=== PATIENT | male | born 2000 | race Asian ===

== ENCOUNTER 2019-01-02 14:08 | Emergency (ER) | payer OTHER, SELFPAY ==
[2019-01-02 14:16] VITALS: BP 119/67; PULSE 78; RESP 14; TEMP 36.7; O2SAT 97; BMI 25.0
--- NOTE | 2019-01-02 14:45 | ED.ABDPAIN ---
HPI - Abdominal Pain <SANDY Rodríguez - Last Filed: 01/02/19 21:32> General Chief Complaint: Abdominal Pain Stated Complaint: Stomach pain Time Seen by Provider: 01/02/19 14:32 Source: patient Mode of arrival: ambulatory Limitations: no limitations History of Present Illness HPI narrative: An 17-year-old healthy male presents emergency department today complaining of 6/10 intermittent mid stomach pain for the past 2 weeks. Associated vomiting last night and increased pain this morning. States pain is aching in nature and is worse with movement and better with rest. Patient has tried taking ibuprofen, Pepto-Bismol, and Tums but has had no relief. Patient was seen in the walk-in clinic after getting a urinalysis and was told to be seen earlier if symptoms persist. Patient recently finished a 5 day course for cough. Denies headaches, sore throat, shortness of breath, chest pain, change in bowel patterns, dysuria, blood in the urine, blood in his vomit, or syncope. MD complaint: abdominal pain Onset (ago): minute(s) Pain Consistency: intermittent Location: periumbilical and LLQ Severity: moderate Severity scale (1-10): 6 Quality: aching Radiation: none Relieving factors: rest Exacerbating factors: movement Associated symptoms: nausea and vomiting Related Data Allergies Allergy/AdvReac Type Severity Reaction Status Date / Time No Known Drug Allergies Allergy Verified 01/02/19 14:16 Review of Systems <SANDY Rodríguez - Last Filed: 01/02/19 21:32> Review of Systems REVIEW OF SYSTEMS: GENERAL: Denies fever or chills. Reports history of past cough that is now resolved. HENT: No head trauma, hearing loss or sore throat. EYES: No loss of vision, double vision, eye pain, or irritation. CARDIOVASCULAR: No chest pain or syncope. RESPIRATORY: No shortness of breath or cough. GASTROINTESTINAL: Complains of abdominal pain, see HPI. GENITOURINARY: No flank pain or dysuria. MUSCULOSKELETAL: No pain, weakness, or deformities. INTEGUMENTARY: No rash, lesions, or pruritus. NEURO: No numbness, tingling, memory loss, or confusion. PSYCH: No behavior or mood changes. PFSH <SANDY Rodríguez - Last Filed: 01/02/19 21:32> Medical History (Updated 01/02/19 @ 21:27 by SANDY Rodríguez) No significant medical problems (Acute) Social History Smoking Status: Unknown if ever smoked Social History Smoking Status: Unknown if ever smoked Exam <SANDY Rodríguez - Last Filed: 01/02/19 21:32> Initial Vital Signs Initial Vital Signs: Vital Signs Temperature 98.0 F 01/02/19 14:16 Pulse Rate 78 01/02/19 14:16 Respiratory Rate 14 01/02/19 14:16 Blood Pressure 119/67 01/02/19 14:16 Pulse Oximetry 97 01/02/19 14:16 PHYSICAL EXAMINATION: GENERAL: Well groomed, alert, and cooperative Answers questions promptly and appropriately. Vital signs noted. HENT: Normocephalic, atraumatic. EYES: Conjunctiva pink, sclera white, no periorbital swelling. CHEST: Normal to inspection and without deformities. CARDIOVASCULAR: S1 and S2 sounds normal. Regular rate and rhythm, no murmurs, clicks, or bruits. No pedal edema. RESPIRATORY: Normal respiratory rate, trachea midline, airway patent. No stridor, nasal flaring or accessory muscle use. Lungs are clear in all may without wheeze, rhonchi, or crackles. GASTROINTESTINAL: Bowel sounds normoactive. Abdomen is soft, right lower quadrant and epigastric tenderness. No rebound tenderness no masses palpated. MUSCULOSKELETAL: Normal gait and coordination. Equal tone and mass bilaterally. EXTREMITIES: CMS intact. Moves all extremities. SKIN: Warm, dry, soft, appropriate color for ethnicity. No lesions, rashes, or wounds. NEURO: Alert and Oriented X 3. Good coordination. No ataxia, or sensory deficits, or cognitive issues. PSYCH: Appropriate affect and mood. <Angelica Laboy DO - Last Filed: 01/03/19 21:33> Initial Vital Signs Initial Vital Signs: Vital Signs Temperature 98.0 F 01/02/19 14:16 Pulse Rate 78 01/02/19 14:16 Respiratory Rate 14 01/02/19 14:16 Blood Pressure 119/67 01/02/19 14:16 Pulse Oximetry 97 01/02/19 14:16 Course <SANDY Rodríguez - Last Filed: 01/02/19 21:32> Course Narrative: Spoke with patient about probable cause of abdominal pain discussed possible follow-up that he could do [place] was [place]. He was feeling a bit better after GI cocktail. Orders Ordered: Discontinued Medications Al Hydrox/Mg Hydrox/Simethicone 20 ml/ Lidocaine HCl 15 ml 0 ml PO NOW ONE Stop: 01/02/19 16:13 Last Admin: 01/02/19 16:19 Dose: 30 ml Ondansetron HCl (Zofran) 4 mg IV NOW ONE Stop: 01/02/19 14:53 Last Admin: 01/02/19 15:14 Dose: 4 mg Consultations Consultation #1: Patient staffed Dr. Laboy Vital Signs - 8 hr 01/02/19 14:16 01/02/19 15:17 01/02/19 16:37 Temperature 98.0 F Pulse Rate 78 70 73 Respiratory Rate 14 14 15 Blood Pressure 119/67 Blood Pressure [Right Arm] 113/56 L 117/66 Pulse Oximetry 97 98 99 <Angelica Laboy DO - Last Filed: 01/03/19 21:33> Orders Ordered: Discontinued Medications Al Hydrox/Mg Hydrox/Simethicone 20 ml/ Lidocaine HCl 15 ml 0 ml PO NOW ONE Stop: 01/02/19 16:13 Last Admin: 01/02/19 16:19 Dose: 30 ml Ondansetron HCl (Zofran) 4 mg IV NOW ONE Stop: 01/02/19 14:53 Last Admin: 01/02/19 15:14 Dose: 4 mg Vital Signs - 8 hr 01/02/19 14:16 01/02/19 15:17 01/02/19 16:37 Temperature 98.0 F Pulse Rate 78 70 73 Respiratory Rate 14 14 15 Blood Pressure 119/67 Blood Pressure [Right Arm] 113/56 L 117/66 Pulse Oximetry 97 98 99 MDM - Abdominal Pain <SANDY Rodríguez - Last Filed: 01/02/19 21:32> Medical Records Attestation: I reviewed the patient's medical records. Lab Data Attestation: I reviewed the patient's lab results. Result diagrams: 01/02/19 14:55 01/02/19 14:55 Lab Results 01/02/19 01/02/19 01/02/19 Range/Units 14:55 14:55 14:55 WBC 6.3 (4.5-11.0) X10^3/uL RBC 5.47 (4.5-5.9) X10^6/uL Hgb 16.1 (13.5-17.5) g/dL Hct 47.6 (41-53) % MCV 87.0 (80-100) fL MCH 29.5 (26-34) PG MCHC 33.9 (30-36) % RDW 13.6 (11.6-14.8) % Plt Count 282 (150-400) X10^3/uL Neut % (Auto) 57.5 (50-75) % Lymph % (Auto) 27.1 (25-40) % Barron % (Auto) 11.7 (3-14) % Eos % (Auto) 3.0 (2-4) % Baso % (Auto) 0.7 (0-2) % Neut # (Auto) 3600 (1306-5302) /uL Lymph # (Auto) 1700 (7569-0057) /uL Barron # (Auto) 700 (0-900) /uL Eos # (Auto) 200 (0-450) /uL Baso # (Auto) 0 (0-100) /uL PT 13.3 H (10.1-12.7) SECONDS INR 1.1 (0.9-1.3) APTT 37 H (26.4-36.2) SECONDS Sodium 140 (137-145) mmol/L Potassium 3.9 (3.4-5.1) mmol/L Chloride 104 (98-107) mmol/L Carbon Dioxide 27 (22-32) mmol/L BUN 13 (9-20) mg/dL Creatinine 0.60 L (0.66-1.25) mg/dL Estimated GFR > 60.0 (>60) mL/min BUN/Creatinine Ratio 21.7 (6-22) Glucose 120 H (70-100) mg/dL Calcium 9.0 (8.4-10.2) mg/dL Total Bilirubin 0.7 (0.2-1.3) mg/dL AST 43 (17-59) IU/L ALT 87 H (21-72) IU/L Alkaline Phosphatase 73 (38-126) U/L Total Creatine Kinase Cancelled CK-MB (CK-2) Cancelled CK-MB (CK-2) Rel Index Cancelled Troponin I Cancelled Total Protein 7.0 (6.3-8.2) g/dL Albumin 4.2 (3.5-5.0) g/dL Globulin 2.8 (1.7-4.1) g/dL Albumin/Globulin Ratio 1.5 (1.0-2.8) Lipase 27 (23-300) U/L Imaging Data CT scan - abdomen: Radiologist's impression: [address] [address] [address] Scan Report Signed Patient: Fred Blackmon [facility]#: [id number] : 2000Acct:[id number] Age/Sex: te of Service: 01/02/19 Loc: ED Accession Number: [id number] Procedure: CT abdomen pelvis w con Ordering Provider: Fay Escamilla PROCEDURE: CT ABDOMEN PELVIS W CON INDICATIONS: RLQ and umbilical pain x 2 weeks. TECHNIQUE: After the administration of intravenous contrast, 5 mm thick sections acquired from the diaphragm to the symphysis. 5 mm coronal and sagittal reformats were acquired. For radiation dose reduction, the following was used: automated exposure control, adjustment of mA and/or kV according to patient size. COMPARISON: None. FINDINGS: Image quality: Excellent. ABDOMEN: Lung bases: Lung bases are clear. Heart size is normal. Solid organs: Liver is normal in size and enhancement. Gallbladder is not well-seen but is grossly unremarkable. Biliary system is non dilated. Pancreas enhances normally. Spleen is normal in size and enhancement. No adrenal nodules. Kidneys demonstrate normal size and enhancement, without hydronephrosis. Peritoneum and bowel: Bowel loops demonstrate normal wall thickness and caliber. No free fluid or air. Normal appendix. Nodes and vessels: No retroperitoneal or mesenteric adenopathy by size criteria. Aorta and inferior vena cava are normal in size. Miscellaneous: No ventral hernias. PELVIS: Genitourinary: Bladder wall thickness is normal. Miscellaneous: No inguinal hernias or adenopathy. Bones: No suspicious bony lesions. Mild diffuse rightward curvature of the lumbar spine. L3-L4 coalitions. No vertebral body compression fractures. IMPRESSION: 1. No acute process. 2. Normal appendix. Dictated by: Parviz Dahl M.D. on 01/02/2019 at 14:39 Approved by: Parviz Dahl M.D. on 01/02/2019 at 14:41 MDM Narrative Medical decision making narrative: Unsure exact cause of patient's abdominal pain, however I suspect it might be epigastric pain are gastritis due to being on a dose of steroids for cough over the past week or so. Less likely appendicitis due to lack of elevated white blood cell count and negative CT, less likely gallstones or pancreatitis due to negative lab work as well as CT. Differential also includes possible exercise-induced asthma with a component of abdominal pain however this is less likely this symptom in patient's his age. Instructed patient to follow-up, strict return precautions given. <Angelica Laboy, DO - Last Filed: 01/03/19 21:33> Lab Data Lab Results 01/02/19 01/02/19 01/02/19 Range/Units 14:55 14:55 14:55 WBC 6.3 (4.5-11.0) X10^3/uL RBC 5.47 (4.5-5.9) X10^6/uL Hgb 16.1 (13.5-17.5) g/dL Hct 47.6 (41-53) % MCV 87.0 (80-100) fL MCH 29.5 (26-34) PG MCHC 33.9 (30-36) % RDW 13.6 (11.6-14.8) % Plt Count 282 (150-400) X10^3/uL Neut % (Auto) 57.5 (50-75) % Lymph % (Auto) 27.1 (25-40) % Barron % (Auto) 11.7 (3-14) % Eos % (Auto) 3.0 (2-4) % Baso % (Auto) 0.7 (0-2) % Neut # (Auto) 3600 (6102-8031) /uL Lymph # (Auto) 1700 (1910-6761) /uL Barron # (Auto) 700 (0-900) /uL Eos # (Auto) 200 (0-450) /uL Baso # (Auto) 0 (0-100) /uL PT 13.3 H (10.1-12.7) SECONDS INR 1.1 (0.9-1.3) APTT 37 H (26.4-36.2) SECONDS Sodium 140 (137-145) mmol/L Potassium 3.9 (3.4-5.1) mmol/L Chloride 104 (98-107) mmol/L Carbon Dioxide 27 (22-32) mmol/L BUN 13 (9-20) mg/dL Creatinine 0.60 L (0.66-1.25) mg/dL Estimated GFR > 60.0 (>60) mL/min BUN/Creatinine Ratio 21.7 (6-22) Glucose 120 H (70-100) mg/dL Calcium 9.0 (8.4-10.2) mg/dL Total Bilirubin 0.7 (0.2-1.3) mg/dL AST 43 (17-59) IU/L ALT 87 H (21-72) IU/L Alkaline Phosphatase 73 (38-126) U/L Total Creatine Kinase Cancelled CK-MB (CK-2) Cancelled CK-MB (CK-2) Rel Index Cancelled Troponin I Cancelled Total Protein 7.0 (6.3-8.2) g/dL Albumin 4.2 (3.5-5.0) g/dL Globulin 2.8 (1.7-4.1) g/dL Albumin/Globulin Ratio 1.5 (1.0-2.8) Lipase 27 (23-300) U/L Discharge Plan Departure Patient Disposition: Home Clinical Impression: Abdominal pain Qualifiers: Abdominal location: generalized Qualified Code(s): R10.84 - Generalized abdominal pain Discharge Date/Time: 01/02/19 16:39 Interventions: ED Discharge Assessment Last Done: 01/02/19 16:38 Instructions: DI for Abdominal Pain-Adult Activity Restrictions/Additional Instructions: Thank you for entrusting me with your care today. As discussed, your CT scan is negative for appendicitis or other infections, the cause of your abdominal pain is uncertain. You can use zhye-huc-cvyikgy ranitidine 150mg also known as Zantac twice a day for 3-5 days. Return to the emergency department if you develops fevers, uncontrolled vomiting, severe abdominal pain, chest pain or shortness of breath. <Angelica Laboy DO - Last Filed: 01/03/19 21:33> Cosign ED Attending Alvino Attestation: I was immediately available in the department for consultation. Documentation has been reviewed. I agree with assessment and plan.
--- NOTE | 2019-01-02 14:48 | ED_ITS ---
HPI - Abdominal Pain <SANDY Rodríguez - Last Filed: 01/02/19 21:32> General Chief Complaint: Abdominal Pain Stated Complaint: Stomach pain Time Seen by Provider: 01/02/19 14:32 Source: patient Mode of arrival: ambulatory Limitations: no limitations History of Present Illness HPI narrative: An 17-year-old healthy male presents emergency department today complaining of 6/10 intermittent mid stomach pain for the past 2 weeks. Associated vomiting last night and increased pain this morning. States pain is aching in nature and is worse with movement and better with rest. Patient has tried taking ibuprofen, Pepto-Bismol, and Tums but has had no relief. Patient was seen in the walk-in clinic after getting a urinalysis and was told to be seen earlier if symptoms persist. Patient recently finished a 5 day course for cough. Denies headaches, sore throat, shortness of breath, chest pain, change in bowel patterns, dysuria, blood in the urine, blood in his vomit, or syncope. MD complaint: abdominal pain Onset (ago): minute(s) Pain Consistency: intermittent Location: periumbilical and LLQ Severity: moderate Severity scale (1-10): 6 Quality: aching Radiation: none Relieving factors: rest Exacerbating factors: movement Associated symptoms: nausea and vomiting Related Data Allergies Allergy/AdvReac Type Severity Reaction Status Date / Time No Known Drug Allergies Allergy Verified 01/02/19 14:16 Review of Systems <SANDY Rodríguez - Last Filed: 01/02/19 21:32> Review of Systems REVIEW OF SYSTEMS: GENERAL: Denies fever or chills. Reports history of past cough that is now resolved. HENT: No head trauma, hearing loss or sore throat. EYES: No loss of vision, double vision, eye pain, or irritation. CARDIOVASCULAR: No chest pain or syncope. RESPIRATORY: No shortness of breath or cough. GASTROINTESTINAL: Complains of abdominal pain, see HPI. GENITOURINARY: No flank pain or dysuria. MUSCULOSKELETAL: No pain, weakness, or deformities. INTEGUMENTARY: No rash, lesions, or pruritus. NEURO: No numbness, tingling, memory loss, or confusion. PSYCH: No behavior or mood changes. PFSH <SANDY Rodríguez - Last Filed: 01/02/19 21:32> Medical History (Updated 01/02/19 @ 21:27 by SANDY Rodríguez) No significant medical problems (Acute) Social History Smoking Status: Unknown if ever smoked Social History Smoking Status: Unknown if ever smoked Exam <SANDY Rodríguez - Last Filed: 01/02/19 21:32> Initial Vital Signs Initial Vital Signs: Vital Signs Temperature 98.0 F 01/02/19 14:16 Pulse Rate 78 01/02/19 14:16 Respiratory Rate 14 01/02/19 14:16 Blood Pressure 119/67 01/02/19 14:16 Pulse Oximetry 97 01/02/19 14:16 PHYSICAL EXAMINATION: GENERAL: Well groomed, alert, and cooperative Answers questions promptly and ap propriately. Vital signs noted. HENT: Normocephalic, atraumatic. EYES: Conjunctiva pink, sclera white, no periorbital swelling. CHEST: Normal to inspection and without deformities. CARDIOVASCULAR: S1 and S2 sounds normal. Regular rate and rhythm, no murmurs, clicks, or bruits. No pedal edema. RESPIRATORY: Normal respiratory rate, trachea midline, airway patent. No stridor, nasal flaring or accessory muscle use. Lungs are clear in all may without wheeze, rhonchi, or crackles. GASTROINTESTINAL: Bowel sounds normoactive. Abdomen is soft, right lower quadrant and epigastric tenderness. No rebound tenderness no masses palpated. MUSCULOSKELETAL: Normal gait and coordination. Equal tone and mass bilaterally. EXTREMITIES: CMS intact. Moves all extremities. SKIN: Warm, dry, soft, appropriate color for ethnicity. No lesions, rashes, or wounds. NEURO: Alert and Oriented X 3. Good coordination. No ataxia, or sensory deficits, or cognitive issues. PSYCH: Appropriate affect and mood. <Angelica Laboy DO - Last Filed: 01/03/19 21:33> Initial Vital Signs Initial Vital Signs: Vital Signs Temperature 98.0 F 01/02/19 14:16 Pulse Rate 78 01/02/19 14:16 Respiratory Rate 14 01/02/19 14:16 Blood Pressure 119/67 01/02/19 14:16 Pulse Oximetry 97 01/02/19 14:16 Course <SANDY Rodríguez - Last Filed: 01/02/19 21:32> Course Narrative: Spoke with patient about probable cause of abdominal pain discussed possible follow-up that he could do a he was at camp. He was feeling a bit better after GI cocktail. Orders Ordered: Discontinued Medications Al Hydrox/Mg Hydrox/Simethicone 20 ml/ Lidocaine HCl 15 ml 0 ml PO NOW ONE Stop: 01/02/19 16:13 Last Admin: 01/02/19 16:19 Dose: 30 ml Ondansetron HCl (Zofran) 4 mg IV NOW ONE Stop: 01/02/19 14:53 Last Admin: 01/02/19 15:14 Dose: 4 mg Consultations Consultation #1: Patient staffed Dr. Laboy Vital Signs - 8 hr 01/02/19 14:16 01/02/19 15:17 01/02/19 16:37 Temperature 98.0 F Pulse Rate 78 70 73 Respiratory Rate 14 14 15 Blood Pressure 119/67 Blood Pressure [Right Arm] 113/56 L 117/66 Pulse Oximetry 97 98 99 <Angelica Laboy DO - Last Filed: 01/03/19 21:33> Orders Ordered: Discontinued Medications Al Hydrox/Mg Hydrox/Simethicone 20 ml/ Lidocaine HCl 15 ml 0 ml PO NOW ONE Stop: 01/02/19 16:13 Last Admin: 01/02/19 16:19 Dose: 30 ml Ondansetron HCl (Zofran) 4 mg IV NOW ONE Stop: 01/02/19 14:53 Last Admin: 01/02/19 15:14 Dose: 4 mg Vital Signs - 8 hr 01/02/19 14:16 01/02/19 15:17 01/02/19 16:37 Temperature 98.0 F Pulse Rate 78 70 73 Respiratory Rate 14 14 15 Blood Pressure 119/67 Blood Pressure [Right Arm] 113/56 L 117/66 Pulse Oximetry 97 98 99 MDM - Abdominal Pain <SANDY Rodríguez - Last Filed: 01/02/19 21:32> Medical Records Attestation: I reviewed the patient's medical records. Lab Data Attestation: I reviewed the patient's lab results. Result diagrams: 01/02/19 14:55 01/02/19 14:55 Lab Results 01/02/19 01/02/19 01/02/19 Range/Units 14:55 14:55 14:55 WBC 6.3 (4.5-11.0) X10^3/uL RBC 5.47 (4.5-5.9) X10^6/uL Hgb 16.1 (13.5-17.5) g/dL Hct 47.6 (41-53) % MCV 87.0 (80-100) fL MCH 29.5 (26-34) PG MCHC 33.9 (30-36) % RDW 13.6 (11.6-14.8) % Plt Count 282 (150-400) X10^3/uL Neut % (Auto) 57.5 (50-75) % Lymph % (Auto) 27.1 (25-40) % [place] % (Auto) 11.7 (3-14) % Eos % (Auto) 3.0 (2-4) % Baso % (Auto) 0.7 (0-2) % Neut # (Auto) 3600 (0853-4303) /uL Lymph # (Auto) 1700 (2167-2740) /uL [place] # (Auto) 700 (0-900) /uL Eos # (Auto) 200 (0-450) /uL Baso # (Auto) 0 (0-100) /uL PT 13.3 H (10.1-12.7) SECONDS INR 1.1 (0.9-1.3) APTT 37 H (26.4-36.2) SECONDS Sodium 140 (137-145) mmol/L Potassium 3.9 (3.4-5.1) mmol/L Chloride 104 (98-107) mmol/L Carbon Dioxide 27 (22-32) mmol/L BUN 13 (9-20) mg/dL Creatinine 0.60 L (0.66-1.25) mg/dL Estimated GFR > 60.0 (>60) mL/min BUN/Creatinine Ratio 21.7 (6-22) Glucose 120 H (70-100) mg/dL Calcium 9.0 (8.4-10.2) mg/dL Total Bilirubin 0.7 (0.2-1.3) mg/dL AST 43 (17-59) IU/L ALT 87 H (21-72) IU/L Alkaline Phosphatase 73 (38-126) U/L Total Creatine Kinase Cancelled CK-MB (CK-2) Cancelled CK-MB (CK-2) Rel Index Cancelled Troponin I Cancelled Total Protein 7.0 (6.3-8.2) g/dL Albumin 4.2 (3.5-5.0) g/dL Globulin 2.8 (1.7-4.1) g/dL Albumin/Globulin Ratio 1.5 (1.0-2.8) Lipase 27 (23-300) U/L Imaging Data CT scan - abdomen: Radiologist's impression: [address] [address] [address] Scan Report Signed Patient: Fred Blackmon [facility]#: [id number] : 2000Acct:[id number] Age/Sex: te of Service: 01/02/19 Loc: ED Accession Number: [id number] Procedure: CT abdomen pelvis w con Ordering Provider: Fay Escamilla PROCEDURE: CT ABDOMEN PELVIS W CON INDICATIONS: RLQ and umbilical pain x 2 weeks. TECHNIQUE: After the administration of intravenous contrast, 5 mm thick sections acquired from the diaphragm to the symphysis. 5 mm coronal and sagittal reformats were acquired. For radiation dose reduction, the following was used: automated exposure control, adjustment of mA and/or kV according to patient size. COMPARISON: None. FINDINGS: Image quality: Excellent. ABDOMEN: Lung bases: Lung bases are clear. Heart size is normal. Solid organs: Liver is normal in size and enhancement. Gallbladder is not well-seen but is grossly unremarkable. Biliary system is non dilated. Pancreas enhances normally. Spleen is normal in size and enhancement. No adrenal nodules. Kidneys demonstrate normal size and enhancement, without hydronephrosis. Peritoneum and bowel: Bowel loops demonstrate normal wall thickness and caliber. No free fluid or air. Normal appendix. Nodes and vessels: No retroperitoneal or mesenteric adenopathy by size criteria. Aorta and inferior vena cava are normal in size. Miscellaneous: No ventral hernias. PELVIS: Genitourinary: Bladder wall thickness is normal. Miscellaneous: No inguinal hernias or adenopathy. Bones: No suspicious bony lesions. Mild diffuse rightward curvature of the lumbar spine. L3-L4 coalitions. No vertebral body compression fractures. IMPRESSION: 1. No acute process. 2. Normal appendix. Dictated by: Parviz Dahl M.D. on 01/02/2019 at 14:39 Approved by: Parviz Dahl M.D. on 01/02/2019 at 14:41 MDM Narrative Medical decision making narrative: Unsure exact cause of patient's abdominal pain, however I suspect it might be epigastric pain are gastritis due to being on a dose of steroids for cough over the past week or so. Less likely appendicitis due to lack of elevated white blood cell count and negative CT, less likely gallstones or pancreatitis due to negative lab work as well as CT. Differential also includes possible exercise-induced asthma with a component of abdominal pain however this is less likely this symptom in patient's his age. Instructed patient to follow-up, strict return precautions given. <Angelica Laboy, DO - Last Filed: 01/03/19 21:33> Lab Data Lab Results 01/02/19 01/02/19 01/02/19 Range/Units 14:55 14:55 14:55 WBC 6.3 (4.5-11.0) X10^3/uL RBC 5.47 (4.5-5.9) X10^6/uL Hgb 16.1 (13.5-17.5) g/dL Hct 47.6 (41-53) % MCV 87.0 (80-100) fL MCH 29.5 (26-34) PG MCHC 33.9 (30-36) % RDW 13.6 (11.6-14.8) % Plt Count 282 (150-400) X10^3/uL Neut % (Auto) 57.5 (50-75) % Lymph % (Auto) 27.1 (25-40) % [place] % (Auto) 11.7 (3-14) % Eos % (Auto) 3.0 (2-4) % Baso % (Auto) 0.7 (0-2) % Neut # (Auto) 3600 (5697-6214) /uL Lymph # (Auto) 1700 (0952-0222) /uL [place] # (Auto) 700 (0-900) /uL Eos # (Auto) 200 (0-450) /uL Baso # (Auto) 0 (0-100) /uL PT 13.3 H (10.1-12.7) SECONDS INR 1.1 (0.9-1.3) APTT 37 H (26.4-36.2) SECONDS Sodium 140 (137-145) mmol/L Potassium 3.9 (3.4-5.1) mmol/L Chloride 104 (98-107) mmol/L Carbon Dioxide 27 (22-32) mmol/L BUN 13 (9-20) mg/dL Creatinine 0.60 L (0.66-1.25) mg/dL Estimated GFR > 60.0 (>60) mL/min BUN/Creatinine Ratio 21.7 (6-22) Glucose 120 H (70-100) mg/dL Calcium 9.0 (8.4-10.2) mg/dL Total Bilirubin 0.7 (0.2-1.3) mg/dL AST 43 (17-59) IU/L ALT 87 H (21-72) IU/L Alkaline Phosphatase 73 (38-126) U/L Total Creatine Kinase Cancelled CK-MB (CK-2) Cancelled CK-MB (CK-2) Rel Index Cancelled Troponin I Cancelled Total Protein 7.0 (6.3-8.2) g/dL Albumin 4.2 (3.5-5.0) g/dL Globulin 2.8 (1.7-4.1) g/dL Albumin/Globulin Ratio 1.5 (1.0-2.8) Lipase 27 (23-300) U/L Discharge Plan Departure Patient Disposition: Home Clinical Impression: Abdominal pain Qualifiers: Abdominal location: generalized Qualified Code(s): R10.84 - Generalized abdominal pain Discharge Date/Time: 01/02/19 16:39 Interventions: ED Discharge Assessment Last Done: 01/02/19 16:38 Instructions: DI for Abdominal Pain-Adult Activity Restrictions/Additional Instructions: Thank you for entrusting me with your care today. As discussed, your CT scan is negative for appendicitis or other infections, the cause of your abdominal pain is uncertain. You can use tigi-vsr-ndzbazs ranitidine 150mg also known as Zantac twice a day for 3-5 days. Return to the emergency department if you develops fevers, uncontrolled vomiting, severe abdominal pain, chest pain or shortness of breath. <Angelica Laboy DO - Last Filed: 01/03/19 21:33> Cosign ED Attending Alvino Attestation: I was immediately available in the dep artment for consultation. Documentation has been reviewed. I agree with assessment and plan.
--- NOTE | 2019-01-02 14:51 | DI.CT.S_ITS ---
PROCEDURE: CT ABDOMEN PELVIS W CON INDICATIONS: RLQ and umbilical pain x 2 weeks. TECHNIQUE: After the administration of intravenous contrast, 5 mm thick sections acquired from the diaphragm to the symphysis. 5 mm coronal and sagittal reformats were acquired. For radiation dose reduction, the following was used: automated exposure control, adjustment of mA and/or kV according to patient size. COMPARISON: None. FINDINGS: Image quality: Excellent. ABDOMEN: Lung bases: Lung bases are clear. Heart size is normal. Solid organs: Liver is normal in size and enhancement. Gallbladder is not well-seen but is grossly unremarkable. Biliary system is non dilated. Pancreas enhances normally. Spleen is normal in size and enhancement. No adrenal nodules. Kidneys demonstrate normal size and enhancement, without hydronephrosis. Peritoneum and bowel: Bowel loops demonstrate normal wall thickness and caliber. No free fluid or air. Normal appendix. Nodes and vessels: No retroperitoneal or mesenteric adenopathy by size criteria. Aorta and inferior vena cava are normal in size. Miscellaneous: No ventral hernias. PELVIS: Genitourinary: Bladder wall thickness is normal. Miscellaneous: No inguinal hernias or adenopathy. Bones: No suspicious bony lesions. Mild diffuse rightward curvature of the lumbar spine. L3-L4 coalitions. No vertebral body compression fractures. IMPRESSION: 1. No acute process. 2. Normal appendix. Dictated by: Parviz Dahl M.D. on 01/02/2019 at 14:39 Approved by: Parviz Dahl M.D. on 01/02/2019 at 14:41
[2019-01-02 15:04] LABS: Add Manual Diff / Slide Review NO; Basophils Absolute Auto 0 /uL (0-100); Basophils Percent Auto 0.7 % (0-2); Eosinophils Absolute Auto 200 /uL (0-450); Hematocrit 47.6 % (41-53); Hemoglobin 16.1 g/dL (13.5-17.5); Lymphocytes Absolute Auto 1700 /uL (1100-4500); Lymphocytes Percent Auto 27.1 % (25-40); Mean Corpuscular HGB Conc 33.9 % (30-36); Mean Corpuscular Hemoglobin 29.5 PG (26-34); Monocytes Absolute Auto 700 /uL (0-900); Monocytes Percent Auto 11.7 % (3-14); Neutrophils Absolute Auto 3600 /uL (1500-7000); Neutrophils Percent Auto 57.5 % (50-75); Platelet Count 282 X10^3/uL (150-400); Red Blood Cell Count 5.47 X10^6/uL (4.5-5.9); Red Cell Distribution Width 13.6 % (11.6-14.8); White Blood Cell Count 6.3 X10^3/uL (4.5-11.0)
[2019-01-02 15:10] LABS: INR 1.1 (0.9-1.3); Prothrombin Time 13.3 SECONDS (10.1-12.7)
[2019-01-02 15:13] LABS: PTT Partial Thromboplastin Tim 37 SECONDS (26.4-36.2)
[2019-01-02] MEDS: ONDANSETRON 4 MG/2 ML INJ IV (15:14)
[2019-01-02 15:17] VITALS: BP 113/56; PULSE 70; RESP 14; O2SAT 98
[2019-01-02 15:17] LABS: Alanine Aminotransferase 87 IU/L (21-72); Albumin 4.2 g/dL (3.5-5.0); Albumin Globulin Ratio 1.5 (1.0-2.8); Alkaline Phosphatase 73 U/L (38-126); Aspartate Aminotransferase 43 IU/L (17-59); BUN Creatinine Ratio 21.7 (6-22); Bilirubin Total 0.7 mg/dL (0.2-1.3); Blood Urea Nitrogen 13 mg/dL (9-20); Carbon Dioxide 27 mmol/L (22-32); Chloride 104 mmol/L (98-107); Estimated Glomerular Filt Rate > 60.0 mL/min (>60); Globulin 2.8 g/dL (1.7-4.1); Glucose 120 mg/dL (70-100); HEMOLYSIS 43 (0-50); Lipase 27 U/L (23-300); Potassium 3.9 mmol/L (3.4-5.1); Sodium 140 mmol/L (137-145)
[2019-01-02] MEDS: MAG HYDROX/ALUMINUM/SIMETH SUS 20 ML, LIDOCAINE VISCOUS 2% 15 ML PO (16:19)
[2019-01-02 16:37] VITALS: BP 117/66; PULSE 73; RESP 15; O2SAT 99
== END 2019-01-02 16:39 | disposition home or self-care (01) ==
PROVIDERS: Emergency Provider Nurse Practitioner
DX: R10.84 Generalized abdominal pain (principal)
CPT/HCPCS: 36591; 74177; 80053; 83690; 85025; 85610; 85730; 96374; 99283; 99284; J2405; Q9967